=== PATIENT | male | born 1935 | race Caucasian/White ===

== ENCOUNTER 2020-01-16 08:16 | Inpatient (IN) | payer OTHER ==
--- NOTE | 2020-01-16 09:00 | RAD REPORT ---
EXAM DESCRIPTION: [place] Single View01/16/2020 8:51 am CLINICAL HISTORY: Shortness of breath COMPARISON: none FINDINGS: Small to moderate left and small right pleural effusions Mild bilateral pulmonary opacities The heart is mildly enlarged IMPRESSION: CHF
[2020-01-16 09:33] LABS: Absolute Lymphocytes (CBC) 0.8 K/uL (0.7-4.9); Basophils % 0.8 % (0-1.3); Lymphocytes % 13.7 % (15.3-44.8); MPV 8.5 fL (7.6-11.3); Protime INR 1.1; RBC Red Blood Cell Count 3.43 M/uL (4.33-5.43)
--- NOTE | 2020-01-16 09:36 | RAD REPORT ---
EXAM DESCRIPTION: USExtrem Venous W Compress Bil01/16/2020 9:28 am CLINICAL HISTORY: Bilateral leg swelling COMPARISON: none FINDINGS: The common femoral, superficial femoral, popliteal and posterior tibial veins bilaterally are compressible and demonstrate augmentation. Doppler demonstrates good flow. IMPRESSION: No evidence of deep venous thrombosis involving either lower extremity.
[2020-01-16 09:42] LABS: ALT/SGPT 14 U/L (12-78); AST/SGOT 12 U/L (15-37); Albumin 3.2 g/dL (3.4-5.0); Alkaline Phosphatase 95 U/L (45-117); BUN Blood Urea Nitrogen 29 mg/dL (7-18); Bicarbonate 25 mmol/L (21-32); Bilirubin Direct 0.3 mg/dL (0-0.2); Bilirubin Total 0.5 mg/dL (0.2-1.0); Glucose Level 124 mg/dL (74-106); Magnesium 1.9 mg/dL (1.8-2.4); NT PRO-BNP 9136 pg/mL (<450); Potassium 4.5 mmol/L (3.5-5.1); Protein, Total 7.7 g/dL (6.4-8.2); Sodium Level 138 mmol/L (136-145); Troponin (Emerg Dept Use Only) < 0.02 ng/mL (0.0-0.045)
--- NOTE | 2020-01-16 10:01 | EDPHYS ---
Physician Documentation [facility] Name: Trino Garsia Age: 84 yrs Sex: Male : 1935 Arrival Date: 01/16/2020 Time: 08:18 Bed 3 Private MD: ED Physician Luther Ruiz HPI: 01/15 09:01 This 84 yrs old Male presents to ER via EMS with complaints of Leg Swelling. jr8 09:01 Patient stated that he had sudden increase in lower extremity swelling. Has had open jr8 wounds to buttock and lower leg that were treated with Abx a couple of weeks ago. Now due to the swelling lower leg wound is getting red and worse again. Also complains of increase in shortness of breath . Severity of symptoms: At their worst the symptoms were moderate. The patient has not experienced similar symptoms in the past. The patient has not recently seen a physician. Historical: - Allergies: 08:27 Morphine; ss - PMHx: 08:27 Atrial Fib; CHF; ss - Social history:: Smoking status: Patient reports the use of cigarette tobacco products, cigars, "i sit on the balcony all day and smoke cigars", Patient uses. ROS: 09:01 Eyes: Negative for injury, pain, redness, and discharge, ENT: Negative for injury, jr8 pain, and discharge, Neck: Negative for injury, pain, and swelling, Abdomen/GI: Negative for abdominal pain, nausea, vomiting, diarrhea, and constipation, Back: Negative for injury and pain, MS/Extremity: Negative for injury and deformity, Neuro: Negative for headache, weakness, numbness, tingling, and seizure. 09:01 Cardiovascular: Positive for edema. 09:01 Respiratory: Positive for shortness of breath. 09:01 Skin: Positive for open wounds left leg and buttock . Exam: 09:01 Eyes: Pupils equal round and reactive to light, extra-ocular motions intact. Lids and jr8 lashes normal. Conjunctiva and sclera are non-icteric and not injected. Cornea within normal limits. Periorbital areas with no swelling, redness, or edema. ENT: Nares patent. No nasal discharge, no septal abnormalities noted. Tympanic membranes are normal and external auditory canals are clear. Oropharynx with no redness, swelling, or masses, exudates, or evidence of obstruction, uvula midline. Mucous membranes moist. 09:01 Respiratory: Lungs have equal breath sounds bilaterally, clear to auscultation and percussion. No rales, rhonchi or wheezes noted. No increased work of breathing, no retractions or nasal flaring. Abdomen/GI: Soft, non-tender, with normal bowel sounds. No distension or tympany. No guarding or rebound. No evidence of tenderness throughout. Back: No spinal tenderness. No costovertebral tenderness. Full range of motion. MS/ Extremity: Pulses equal, no cyanosis. Neurovascular intact. Full, normal range of motion. Neuro: Awake and alert, GCS 15, oriented to person, place, time, and situation. Cranial nerves II-XII grossly intact. Motor strength 5/5 in all extremities. Sensory grossly intact. Cerebellar exam normal. Normal gait. 09:01 Cardiovascular: Rate: normal, Rhythm: irregularly irregular, Pulses: Pulses are 2+ in right radial artery and left radial artery. Heart sounds: murmur, systolic, grade 3 over 6, heard in the aortic area, Edema: 4+ edema to level of left knee, left midcalf, left ankle, left foot, right knee, right midcalf, right ankle and right foot. 09:01 ECG was reviewed by the Attending Physician. 09:01 Skin: Patient has open wound with eschar noted to left anterior tibia region. Mild surrounding erythema noted. Vital Signs: 08:23 BP 188 / 81; Pulse 83; Resp 19; Temp 98.4(O); Pulse Ox 99% on R/A; Weight 157.85 kg tw2 (R); Height 6 ft. 3 in. (190.50 cm); Pain 0/10; 08:24 BP 188 / 87; Pulse 112; Resp 19; Pulse Ox 95% on R/A; Weight 127.01 kg; Height 6 ft. 3 ss in. (190.50 cm); Pain 0/10; 10:00 BP 186 / 86; Pulse 80; Resp 17; Pulse Ox 96% on R/A; hb 11:00 BP 194 / 91; Pulse 68; Resp 19; Pulse Ox 98% on R/A; hb 12:00 BP 170 / 81; Pulse 61; Resp 19; Pulse Ox 96% on R/A; tw2 12:56 BP 181 / 91; Pulse 65; Resp 18; Pulse Ox 98% on R/A; tw2 14:00 BP 199 / 77; Pulse 69; Resp 17; Pulse Ox 97% on R/A; tw2 15:01 BP 196 / 84; Pulse 84; Resp 17; Pulse Ox 98% on R/A; tw2 16:00 BP 199 / 85; Pulse 76; Resp 18; Pulse Ox 97% on R/A; tw2 16:52 BP 188 / 83; Pulse 66; Resp 17; Pulse Ox 95% on R/A; tw2 08:24 Body Mass Index 35.00 (127.01 kg, 190.50 cm) ss MDM: 08:27 Patient medically screened. jr8 09:57 Data reviewed: vital signs, nurses notes, lab test result(s), EKG, radiologic studies, jr8 plain films, ultrasound. Data interpreted: Pulse oximetry: on room air is 95 %. Interpretation: normal. Counseling: I had a detailed discussion with the patient and/or guardian regarding: the historical points, exam findings, and any diagnostic results supporting the discharge/admit diagnosis, lab results, radiology results, the need for further work-up and treatment in the hospital. Physician consultation: Prince Long SIMMS was called at 09:58, was contacted at 09:58, regarding admission, to the telemetry unit. consult, patient's condition. 01/15 08:26 Order name: Basic Metabolic Panel; Complete Time: 09:51 01/15 08:26 Order name: CBC with Diff; Complete Time: 09:35 01/15 08:26 Order name: LFT's; Complete Time: :51 01/15 08:26 Order name: Magnesium; Complete Time: 09:51 01/15 08:26 Order name: NT PRO-BNP; Complete Time: 09:51 01/15 08:26 Order name: PT-INR; Complete Time: 09:41 01/15 08:26 Order name: Troponin (emerg Dept Use Only); Complete Time: 09:51 01/15 08:26 Order name: XRAY Chest (1 view); Complete Time: 09:15 01/15 08:26 Order name: EKG; Complete Time: 08:28 01/15 08:27 Order name: US Extremity Venous W Compression Jak; Complete Time: 09:41 8 01/15 10:13 Order name: Urine Dipstick--Ancillary (enter results); Complete Time: 10:50 bd 01/15 08:26 Order name: Cardiac monitoring; Complete Time: 09:14 01/15 08:26 Order name: EKG - Nurse/Tech; Complete Time: 09:14 01/15 08:26 Order name: IV Saline Lock; Complete Time: 09:15 01/15 08:26 Order name: Labs collected and sent; Complete Time: 09:15 01/15 08:26 Order name: O2 Per Protocol; Complete Time: 09:15 01/15 08:26 Order name: O2 Sat Monitoring; Complete Time: 09:15 01/15 13:58 Order name: Diet 2 Gm Sodium; Complete Time: 13:59 mh5 01/15 16:33 Order name: Labs - recollect needed: please collect mag; Complete Time: 16:56 bd EC:01 Rate is 74 beats/min. Rhythm is irregularly irregular, A fib with Couplets. Left axis jr8 deviation noted. QRS interval is normal at 84 msec. QT interval is normal at 455 msec. Q waves are Present. T waves are Normal. No ST changes noted. Clinical impression: Atrial Fibrillation and No evidence of ischemia. Interpreted by me. Reviewed by me. Administered Medications: 09:56 Not Given (Duplicate Order): Lasix 80 mg IVP once tw2 10:11 Drug: Lasix 60 mg Route: IVP; Site: left antecubital; tw2 15:02 Follow up: Response: No adverse reaction tw2 Disposition: 01/16/20 10:00 Hospitalization ordered by Prince Long for Inpatient Admission. Preliminary diagnosis are Acute kidney failure, Acute combined systolic (congestive) and diastolic (congestive) heart failure, Anasarca, Open wound of lower leg. - Bed requested for Intensive Care Unit. - Status is Inpatient Admission. tw2 - Condition is Stable. - Problem is new. - Symptoms have improved. Addendum: 01/18/2020 18:20 Co-signature as Attending Physician, Luther su a2 Signatures: Dispatcher [employer] Nelia Turk Kimberly, RN RN Edyta Tan RN RN ss Richard Mclain PA PA jr8 Steph Pavon RN RN tw2 Luther Ruiz MD MD wy2 Corrections: (The following items were deleted from the chart) 01/15 11:51 11:36 EC Echo Doppler W/Color Flow+ECHO.RAD.BRZ ordered. EDTX EDMS 12:19 10:00 Hospitalization Ordered by Prince Long SIMMS for Inpatient Admission. Preliminary kl diagnosis is Acute kidney failure; Acute combined systolic (congestive) and diastolic (congestive) heart failure; Anasarca; Open wound of lower leg. Bed requested for Telemetry/MedSurg (observation). Status is Inpatient Admission. Condition is Stable. Problem is new. Symptoms have improved. 8 13:13 12:19 01/16/2020 10:00 Hospitalization Ordered by Prince Long SIMMS for Inpatient kl Admission. Preliminary diagnosis is Acute kidney failure; Acute combined systolic (congestive) and diastolic (congestive) heart failure; Anasarca; Open wound of lower leg. Bed requested for Telemetry/MedSurg (observation). Status is Inpatient Admission. Condition is Stable. Problem is new. Symptoms have improved. 13:15 13:13 01/16/2020 10:00 Hospitalization Ordered by Prince Long SIMMS for Inpatient jr8 Admission. Preliminary diagnosis is Acute kidney failure; Acute combined systolic (congestive) and diastolic (congestive) heart failure; Anasarca; Open wound of lower leg. Bed requested for Telemetry/MedSurg (observation). Status is Inpatient Admission. Condition is Stable. Problem is new. Symptoms have improved. 16:52 13:15 01/16/2020 10:00 Hospitalization Ordered by Prince Long SIMMS for Inpatient ss Admission. Preliminary diagnosis is Acute kidney failure; Acute combined systolic (congestive) and diastolic (congestive) heart failure; Anasarca; Open wound of lower leg. Bed requested for Intensive Care Unit. Status is Inpatient Admission. Condition is Stable. Problem is new. Symptoms have improved. 8 17:19 16:52 01/16/2020 10:00 Hospitalization Ordered by Prince Long SIMMS for Inpatient tw2 Admission. Preliminary diagnosis is Acute kidney failure; Acute combined systolic (congestive) and diastolic (congestive) heart failure; Anasarca; Open wound of lower leg. Bed requested for Intensive Care Unit. Status is Inpatient Admission. Condition is Stable. Problem is new. Symptoms have improved. ss
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
[2020-01-16] MEDS ORDERED: FUROSEMIDE 40 MG/4 ML VIAL ONE (10:06)
[2020-01-16] MEDS ORDERED: FUROSEMIDE 20 MG/ 2ML VIAL ONE (10:06)
[2020-01-16 10:39] LABS: Urine Blood 2+ (NEG); Urine Glucose NEGATIVE (NEG); Urine Protein 3+ (NEG); Urine pH 6.5 (5.0-7.0)
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
[2020-01-16] MEDS: HYDRALAZINE HCL 25 MG TABLET PO SCH ×2 (16:45→19:22)
[2020-01-16] MEDS ORDERED: FUROSEMIDE 40 MG/4 ML VIAL IV SCH (17:00)
[2020-01-16] MEDS ORDERED: NITROGLYCERIN/D5W 50 MG/250 ML BTL IV PRN (17:25)
[2020-01-16 17:46] VITALS: BMI 36.2
--- NOTE | 2020-01-16 20:14 | EKG ---
Test Date: 2020-01-16 Test Time: 08:38:16 Business Support Manager: GLORIA MEASUREMENT RESULTS: Intervals: Rate: 74 ME: QRSD: 84 QT: 410 QTc: 455 [place]: P: ME: QRS: -53 T: 99 INTERPRETIVE STATEMENTS: Atrial fibrillation with premature ventricular or aberrantly conducted complexes Left axis deviation Minimal voltage criteria for LVH, may be normal variant Inferior infarct, age undetermined Anteroseptal infarct, age undetermined Abnormal ECG No previous ECG available for comparison Electronically Signed On 01-16-20 20:13:13 CDT by Dmitry Recio
[2020-01-17 05:43] LABS: Albumin 2.6 g/dL (3.4-5.0); Bilirubin Total 0.5 mg/dL (0.2-1.0); Magnesium 1.8 mg/dL (1.8-2.4); Potassium 4.5 mmol/L (3.5-5.1); Protein, Total 6.7 g/dL (6.4-8.2)
[2020-01-17] MEDS: GABAPENTIN 100 MG CAP PO SCH ×3 (08:08→21:59)
[2020-01-17] MEDS: ASPIRIN 81 MG CHEWABLE TABLET PO SCH (08:08)
[2020-01-17] MEDS: HYDRALAZINE HCL 25 MG TABLET PO SCH ×3 (08:08→22:00)
[2020-01-17] MEDS: FUROSEMIDE 40 MG/4 ML VIAL IV SCH ×3 (08:08→16:09)
[2020-01-17] MEDS: PANTOPRAZOLE 40MG TABLET PO SCH (08:08)
[2020-01-17] MEDS: SUCRALFATE 1 GM TABLET PO SCH ×4 (08:08→21:59)
[2020-01-17] MEDS: MAGNESIUM OXIDE 400 MG TAB PO SCH ×3 (08:09→21:00)
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
[2020-01-17] MEDS ORDERED: HOME MED 1 EA UNK (Omeprazole [Omeprazole] 20 MG) PO SCH (09:00)
--- NOTE | 2020-01-17 10:53 | P.PN ---
Subjective Date of Service: 01/17/20 Chief Complaint: shortness of breath and lower extremity edema Subjective: Improving, Other (Patient reports symptomatic improvement of lower extremity edema and pressure ulcers on the buttocks. Hypertensive crisis has resolved. He will be downgraded to general floor while on telemetry.) Physical Examination - Vital Signs Temperature: 98.3 F Blood Pressure: 167/70 Pulse: 78 Respirations: 13 Pulse Ox (%): 98 - Physical Exam General: Alert, In no apparent distress, Cooperative HEENT: Atraumatic, Normocephalic, EOMI Neck: Supple Respiratory: Normal air movement Cardiovascular: Regular rate/rhythm, Normal S1 S2, Irregular heart rate/rhythm Gastrointestinal: Normal bowel sounds, Soft and benign, Non-distended Musculoskeletal: No clubbing, No contractures, No warmth, Swelling, Erythema, Tenderness Integumentary: Skin breakdown, Pressure ulcer Neurological: Normal speech, Sensation intact, Normal affect Assessment & Plan - Problems (Diagnosis) (1) Hypertensive emergency Current Visit: Yes Status: Acute (2) Acute decompensated heart failure Current Visit: Yes Status: Acute (3) SHANE (acute kidney injury) Current Visit: Yes Status: Acute (4) Stage II pressure ulcer of buttock Current Visit: Yes Status: Acute (5) Left leg cellulitis Current Visit: Yes Status: Acute (6) Atrial fibrillation Current Visit: Yes Status: Acute (7) Hypertension Current Visit: Yes Status: Acute Physician Review Additional Text: Assessment Patient is a 84 year old male wtih morbid obesity, HTN, atrial fibri llation who presented to the ER with worsening bilateral lower extremity edema and wounds and mild shortness of breath. He was foudn to have hypertensive emergency with SBP > 195 mmHg. He required ICU placement for nitroglycerin infusion and lasix injections Hypertensive emergency Decompensated CHF Atrial fibrillation SHANE Leg wounds/cellulitis Stage III pressure ulcer in the buttocks PLAN Downgrade to floor while on telemetry Continue diuresis, monitor I/O daily Continue Hydralazine, add nitrates Follow up 2-D ECHO Coreg for atrial fibrillation Will discuss systemic anticoagulation for CVA prevention Follow up nephrology recommendations for SHANE. Continue wound care for as per Wound nurse instructions Case discussed during MDR for home health with wound care
[2020-01-17] MEDS: ISOSORBIDE DINIT 20 MG TAB PO SCH ×3 (11:38→21:58)
[2020-01-17] MEDS: carvediloL 12.5 MG TAB PO SCH ×2 (11:38→18:10)
[2020-01-17] MEDS: MEDIHONEY 44 ML TOPICAL TUBE TOP SCH (11:38)
--- NOTE | 2020-01-17 14:11 | ECHO ---
HEIGHT: 6 ft 3 in WEIGHT: 289 lb 12.8 oz DATE OF STUDY: 01/17/[address]: Prince Alfonso Alves MD 2-DIMENSIONAL: YES M.MODE: YES DOPPLER: YES COLOR FLOW: YES TDS: NO PORTABLE: NO DEFINITY: NO BUBBLE STUDY: NO DIAGNOSIS: CONGESTIVE HEART FAILURE CARDIAC HISTORY: CATHERIZATION: YES SURGERY: NO PROSTHETIC VALVE: NO PACEMAKER: NO MEASUREMENTS (cm) DIASTOLIC (NORMALS) SYSTOLIC (NORMALS) IVSd 1.3 (0.6-1.2) LA Diam 4.1 (1.9-4.0) LVEF 44% LVIDd 5.6 (3.5-5.7) LVIDs 4.4 (2.0-3.5) %FS 22% LVPWd 1.2 (0.6-1.2) Ao Diam 3.2 (2.0-3.7) 2 DIMENSIONAL ASSESSMENT: RIGHT ATRIUM: NORMAL LEFT ATRIUM: DILATED RIGHT VENTRICLE: NORMAL LEFT VENTRICLE: NORMAL SIZE TRICUSPID VALVE: NORMAL MITRAL VALVE: MITRAL ANNULAR CALCIFICATION PULMONIC VALVE: NORMAL AORTIC VALVE: STENOTIC PERICARDIAL EFFUSION: NONE AORTIC ROOT: NORMAL LEFT VENTRICULAR WALL MOTION: MILD GLOBAL HYPOKINESIS. DOPPLER/COLOR FLOW: MILD AORTIC STENOSIS - 1.7 CENTIMETER SQUARED. MILD TRICUSPID REGURGITATION - NORMAL RIGHT VENTRICULAR SYSTOLIC PRESSURE. COMMENTS: MILD AORTIC STENOSIS 1.7 CENTIMETERS SQUARED. MILD GLOBAL HYPOKINESIS - EJECTION FRACTION 44%. MITRAL ANNULAR CALCIFICATION. MILD TRICUSPID REGURGITATION - NORMAL RIGHT VENTRICULAR SYSTOLIC PRESSURE. TECHNOLOGIST: JENNIFER HONEYCUTT
[2020-01-17] MEDS ORDERED: EPOETIN ALFA-EPBX 10,000 UNIT/ML VIAL SQ ONE (16:00)
[2020-01-17] MEDS ORDERED: METOLAZONE 5 MG TABLET PO SCH (16:00)
[2020-01-17] MEDS: TAMSULOSIN 0.4 MG SR CAP PO SCH (22:00)
[2020-01-17] MEDS: DOCUSATE NA/SENNA CONC 1 TAB PO SCH (22:00)
[2020-01-17] MEDS: JUVEN PACKET PO SCH (22:01)
[2020-01-17] MEDS: ENSURE HIGH PROTEIN 237 ML CAN PO SCH (22:01)
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
[2020-01-18 06:30] LABS: Potassium 4.1 mmol/L (3.5-5.1)
[2020-01-18] MEDS: carvediloL 12.5 MG TAB PO SCH ×2 (06:41→17:04)
--- NOTE | 2020-01-18 07:40 | RAD REPORT ---
EXAM DESCRIPTION: US - Renal Ultrasound-Complete - 01/17/2020 9:48 pm CLINICAL HISTORY: SHANE COMPARISON: No comparisons FINDINGS: The right kidney measures 11.8 x 5.6 x 6.2 cm. The left kidney measures 12.9 x 5.5 x 5.0 cm. Renal cortical thickness and echogenicity are normal. No hydronephrosis or suspicious renal mass. Doppler evaluation was technically difficult. There appears to be a diminished perfusion to both kidn eys. The accuracy of diminished perfusion assessment is question. If warranted, dedicated renal Doppl er assessment could be performed with the patient could undergo no CTA or MRA of the renal vasculatur e. No bladder wall thickening or mass. No intraluminal stone or mass. IMPRESSION: No hydronephrosis or suspicious renal mass. Limited Doppler assessment suggest diminished perfusion a each kidneys. If clinically warranted, this could be further assessed as detailed above.
--- NOTE | 2020-01-18 07:41 | RAD REPORT ---
EXAM DESCRIPTION: US - Urinary Bladder - 01/17/2020 9:48 pm FINDINGS: Dedicated bladder sonography was performed. Urinary bladder volume is low somewhat limiting assessment. No bladder wall thickening or mass identi fied. No stone or other intraluminal mass identifiable.
[2020-01-18] MEDS: MAGNESIUM OXIDE 400 MG TAB PO SCH ×3 (09:00→21:15)
[2020-01-18] MEDS: HYDRALAZINE HCL 25 MG TABLET PO SCH ×4 (09:00→21:14)
[2020-01-18] MEDS: GABAPENTIN 100 MG CAP PO SCH ×3 (09:10→21:14)
[2020-01-18] MEDS: PANTOPRAZOLE 40MG TABLET PO SCH (09:10)
[2020-01-18] MEDS: ISOSORBIDE DINIT 20 MG TAB PO SCH ×3 (09:10→21:14)
[2020-01-18] MEDS: ASPIRIN 81 MG CHEWABLE TABLET PO SCH (09:10)
[2020-01-18] MEDS: VITAMIN D 5,000 UNIT CAP PO SCH (09:10)
[2020-01-18] MEDS: SUCRALFATE 1 GM TABLET PO SCH ×4 (09:11→21:14)
[2020-01-18] MEDS: FUROSEMIDE 40 MG/4 ML VIAL IV SCH ×2 (09:11→16:51)
[2020-01-18] MEDS: JUVEN PACKET PO SCH ×2 (09:12→21:15)
[2020-01-18] MEDS: ENSURE HIGH PROTEIN 237 ML CAN PO SCH ×2 (09:14→21:15)
--- NOTE | 2020-01-18 11:15 | P.PN ---
Subjective Date of Service: 01/18/20 Chief Complaint: shortness of breath and lower extremity edema Subjective: No new changes (Patient is reporting dyspnea with minimal exertion such as getting out of toilet. However, he is overall doing better. I spent 10 minutes discussing plan of care. I stressed on the importance of dietary compliance including daily total water intake and salt, medication compliance. I also discussed the importance of systemic anticoagulation for CVA prevention. He was initially adverse to the idea because of the amount of monitoring required while on warfarin. I discussed alternative with him. He is agreeable as long as there is reversal agent.) Physical Examination - Vital Signs Temperature: 97.7 F Blood Pressure: 136/63 Pulse: 58 Respirations: 19 Pulse Ox (%): 94 - Physical Exam General: Cooperative, Moderate distress HEENT: Atraumatic, Normocephalic, EOMI Respiratory: Diminished, Crackles/rales Cardiovascular: Normal S1 S2, Irregular heart rate/rhythm Gastrointestinal: Normal bowel sounds, Soft and benign, Non-distended Musculoskeletal: Swelling, Erythema, Tenderness Integumentary: Pressure ulcer, Other (stage III pressure ulcer in the buttocks) Neurological: Normal speech, Sensation intact, Normal affect Assessment & Plan - Problems (Diagnosis) (1) Hypertensive emergency Current Visit: Yes Status: Acute (2) Acute decompensated heart failure Current Visit: Yes Status: Acute (3) SHANE (acute kidney injury) Current Visit: Yes Status: Acute (4) Stage II pressure ulcer of buttock Current Visit: Yes Status: Acute (5) Left leg cellulitis Current Visit: Yes Status: Acute (6) Atrial fibrillation Current Visit: Yes Status: Acute (7) Hypertension Current Visit: Yes Status: Acute Physician Review Additional Text: Assessment Patient is a 84 year old male with morbid obesity, HTN, atrial fibrillation who presented to the ER with worsening bilateral lower extremity edema and wounds and mild shortness of breath. He was found to have hypertensive emergency with SBP > 195 mmHg, acute on chronic systolic HF and SHANE. He required ICU placement for nitroglycerin infusion and lasix injections. 2-D Echo shows EF of 40-44%. He is still requiring diuresis. His renal function is slowly to recover. He had a negative renal and bladder ultrasound. Nephrology is on board. Hypertensive emergency Decompensated CHF Atrial fibrillation SHANE Leg wounds/cellulitis Stage III pressure ulcer in the buttocks PLAN Continue telemetry Continue diuresis, monitor I/O daily. Received 1 dose of metolazone yesterday Patient educated on fluid restriction, 1.5 L per day AND salt restriction Continue Hydralazine and nitrates Coreg for atrial fibrillation Continue wound care for as per Wound nurse instructions Case discussed during MDR for home health with wound care. I will put order for cardiac rehab.
[2020-01-18] MEDS: DABIGATRAN 150 MG CAP PO SCH ×2 (13:27→21:14)
[2020-01-18] MEDS: MEDIHONEY 44 ML TOPICAL TUBE TOP SCH (14:14)
[2020-01-18] MEDS: TAMSULOSIN 0.4 MG SR CAP PO SCH (21:14)
[2020-01-18] MEDS: DOCUSATE NA/SENNA CONC 1 TAB PO SCH (21:14)
--- NOTE | 2020-01-18 21:51 | P.PN ---
Date of Service: 01/18/20 Vital Signs Temp Pulse Resp BP Pulse Ox 98.1 F 53 18 172/65 H 97 01/18/20 20:00 01/18/20 20:00 01/18/20 20:00 01/18/20 20:00 01/18/20 20:00 Medications Aspirin (Aspirin Chewable) 81 mg PO DAILY [facility] Stop: 02/16/20 09:01 Last Admin: 01/18/20 09:10 Dose: 81 mg Documented by: Carvedilol (Coreg) 12.5 mg PO BID 6AM 6PM [facility] Stop: 02/16/20 10:57 Last Admin: 01/18/20 17:04 Dose: 12.5 mg Documented by: Cholecalciferol (Vitamin D 5,000 Iu Cap) 5,000 unit PO DAILY [facility] Stop: 02/17/20 09:01 Last Admin: 01/18/20 09:10 Dose: 5,000 unit Documented by: Dabigatran (Pradaxa) 150 mg PO BID [facility] Stop: 02/17/20 14:01 Last Admin: 01/18/20 21:14 Dose: 150 mg Documented by: Emollient Gel ([facility] Woundcare Gel) 1 appl TOP DAILY [facility] Stop: 02/16/20 09:01 Last Admin: 01/18/20 14:14 Dose: 1 appl Documented by: Furosemide (Lasix) 40 mg IV BIDL [facility] Stop: 02/16/20 07:37 Last Admin: 01/18/20 16:51 Dose: 40 mg Documented by: Gabapentin (Neurontin) 100 mg PO TID [facility] Stop: 02/16/20 09:01 Last Admin: 01/18/20 21:14 Dose: 100 mg Documented by: Hydralazine HCl (Apresoline) 50 mg PO TID [facility] Stop: 02/17/20 08:01 Last Admin: 01/18/20 21:14 Dose: 50 mg Documented by: Nitroglycerin/Dextrose (Ntg 0.2 Mg/Ml In D5w 250 Ml) 50 mg in 250 mls @ 0 mls/hr IV PRN PRN; Protocol PRN Reason: Hemodynamic Parameters Stop: 02/15/20 17:26 Last Admin: 01/16/20 17:53 Dose: 250 mls Documented by: Isosorbide Dinitrate (Isordil) 20 mg PO TID [facility] Stop: 02/16/20 10:55 Last Admin: 01/18/20 21:14 Dose: 20 mg Documented by: L-Arginine/L-Glutamine/HMB (Edilson) 1 pkt PO BID [facility] Stop: 02/16/20 21:01 Last Admin: 01/18/20 21:15 Dose: 1 pkt Documented by: Magnesium Oxide (Mag 0x Tab) 400 mg PO TID [facility] Stop: 02/16/20 09:01 Last Admin: 01/18/20 21:15 Dose: 400 mg Documented by: Nutritional Formula (Ensure High Protein) 237 ml PO BID [facility] Stop: 02/16/20 21:01 Last Admin: 01/18/20 21:15 Dose: 237 ml Documented by: Pantoprazole Sodium (Protonix Tab) 40 mg PO DAILY [facility] Stop: 02/16/20 09:01 Last Admin: 01/18/20 09:10 Dose: 40 mg Documented by: Senna/Docusate Sodium (Senokot-S) 1 tab PO BEDTIME [facility] Stop: 02/16/20 21:01 Last Admin: 01/18/20 21:14 Dose: 1 tab Documented by: Sucralfate (Carafate -Tab) 1 gm PO QID [facility] Stop: 02/16/20 09:01 Last Admin: 01/18/20 21:14 Dose: 1 gm Documented by: Tamsulosin HCl (Flomax) 0.8 mg PO BEDTIME [facility] Stop: 02/16/20 21:01 Last Admin: 01/18/20 21:14 Dose: 0.8 mg Documented by: Assessment/ Plan: Nephrology Feeling better today. CPS stable without CP or SOB. +MIX No acute events overnight. Vitals, medications, blood work and imaging reviewed in the chart. General: In no apparent distress, Oriented x3, Cooperative HEENT: Normocephalic, Mucous membr. moist/pink Neck: Supple Respiratory: Clear to auscultation bilaterally Cardiovascular: Regular rate/rhythm, No rubs, Edema Gastrointestinal: Soft and benign, Non-distended, No guarding Musculoskeletal: No clubbing, No contractures Integumentary: No cyanosis, Skin breakdown Neurological: Normal speech Laboratory Data (last 24 hrs) 01/16/20 09:10: PT 13.0 H, INR 1.10 01/16/20 09:10: WBC 5.5, Hgb 9.5 L, Hct 30.0 L, Plt Count 243 01/16/20 09:10: Sodium 138, Potassium 4.5, BUN 29 H, Creatinine 2.39 H, Glucose 124 H, Magnesium 1.9, Total Bilirubin 0.5, AST 12 L, ALT 14, Alkaline Phosphata se 95 Imagings Data: EXAM DESCRIPTION: [place] Single View01/16/2020 8:51 am CLINICAL HISTORY: Shortness of breath COMPARISON: none FINDINGS: Small to moderate left and small right pleural effusion Mild bilateral pulmonary opacities The heart is mildly enlarged IMPRESSION: CHF COMMENTS: MILD AORTIC STENOSIS 1.7 CENTIMETERS SQUARED. MILD GLOBAL HYPOKINESIS EJECTION FRACTION 44%. MITRAL ANNULAR CALCIFICATION. MILD TRICUSPID REGURGITATION NORMAL RIGHT VENTRICULAR SYSTOLIC PRESSURE. Conclusions/Impression: A/ SHANE in the setting of CHF. Hypocalcemia. CKD with proteinuria. Baseline unknown. HTN with CKD/ CHF. Systolic CHF, A/C. DM II with CKD. Anemia in chronic illness. P/ Continue current POC and Medications. Continue Lasix. Reduce Coreg due to bradycardia. Restart Losartan 25mg BID and titrate as needed. No NSAIDs. AM labs. Daily weight. PCP records pending.
[2020-01-18] MEDS: LOSARTAN POTASSIUM 50 MG TABLET PO SCH (22:00)
[2020-01-19] MEDS: carvediloL 12.5 MG TAB PO SCH ×2 (05:42→12:32)
[2020-01-19] MEDS: ASPIRIN 81 MG CHEWABLE TABLET PO SCH (09:00)
[2020-01-19] MEDS: SUCRALFATE 1 GM TABLET PO SCH ×4 (09:01→20:58)
[2020-01-19] MEDS: LOSARTAN POTASSIUM 50 MG TABLET PO SCH (09:01)
[2020-01-19] MEDS: VITAMIN D 5,000 UNIT CAP PO SCH (09:01)
[2020-01-19] MEDS: HYDRALAZINE HCL 25 MG TABLET PO SCH ×3 (09:01→20:58)
[2020-01-19] MEDS: ISOSORBIDE DINIT 20 MG TAB PO SCH ×3 (09:02→20:58)
[2020-01-19] MEDS: GABAPENTIN 100 MG CAP PO SCH ×3 (09:02→20:58)
[2020-01-19] MEDS: PANTOPRAZOLE 40MG TABLET PO SCH (09:02)
[2020-01-19] MEDS: MAGNESIUM OXIDE 400 MG TAB PO SCH ×3 (09:02→20:58)
[2020-01-19] MEDS: FUROSEMIDE 40 MG/4 ML VIAL IV SCH ×2 (09:02→17:00)
[2020-01-19] MEDS: JUVEN PACKET PO SCH ×2 (09:06→20:58)
[2020-01-19] MEDS: ENSURE HIGH PROTEIN 237 ML CAN PO SCH ×2 (09:06→20:58)
[2020-01-19] MEDS: DABIGATRAN 75 MG CAP PO SCH ×2 (09:06→20:59)
[2020-01-19] MEDS: MEDIHONEY 44 ML TOPICAL TUBE TOP SCH (09:06)
[2020-01-19 09:24] LABS: Absolute Lymphocytes (CBC) 0.8 K/uL (0.7-4.9); Basophils % 0.6 % (0-1.3); Lymphocytes % 15.4 % (15.3-44.8); MPV 8.9 fL (7.6-11.3); RBC Red Blood Cell Count 2.97 M/uL (4.33-5.43)
[2020-01-19] MEDS ORDERED: NA CHLORIDE 5% Opth Soln 150 DROPS/15 ML BTL EACH EYE PRN (09:36)
[2020-01-19 09:39] LABS: Potassium 4.1 mmol/L (3.5-5.1)
--- NOTE | 2020-01-19 12:40 | P.PN ---
Subjective Date of Service: 01/19/20 Chief Complaint: shortness of breath and lower extremity edema Subjective: New changes (Patient bradycardic this morning. Coreg held. Otherwise, he is comfortable w/o supplemental O2 while at rest. Still reporting MIX.) Physical Examination - Vital Signs Temperature: 97.3 F Blood Pressure: 133/65 Pulse: 54 Respirations: 20 Pulse Ox (%): 91 - Physical Exam General: Alert, In no apparent distress, Cooperative, Obese, Other (LETHARGIC) HEENT: Atraumatic, Normocephalic, EOMI Respiratory: Diminished (No wheezing or crackles appreciated) Cardiovascular: Normal S1 S2, Edema, Irregular heart rate/rhythm Musculoskeletal: Swelling, Erythema, Tenderness, Other (bilateral lower extremity edema. LLE wrapped. ) Neurological: Normal speech, Sensation intact, Normal affect Assessment & Plan - Problems (Diagnosis) (1) Hypertensive emergency Current Visit: Yes Status: Acute (2) Acute decompensated heart failure Current Visit: Yes Status: Acute (3) SHANE (acute kidney injury) Current Visit: Yes Status: Acute (4) Stage II pressure ulcer of buttock Current Visit: Yes Status: Acute (5) Left leg cellulitis Current Visit: Yes Status: Acute (6) Atrial fibrillation Current Visit: Yes Status: Acute (7) Hypertension Current Visit: Yes Status: Acute Physician Review Additional Text: Assessment Patient is a 84 year old male with morbid obesity, HTN, atrial fibrillation who presented to the ER with worsening bilateral lower extremity edema and wounds and mild shortness of breath. He was found to have hypertensive emergency with SBP > 195 mmHg, acute on chronic systolic HF and SHANE. He required ICU placement for nitroglycerin infusion and lasix injections. 2-D Echo shows EF of 40-44%. He is still requiring diuresis. His renal function is slowly to recover. He had a negative renal and bladder ultrasound. Nephrology is on board. Hypertensive emergency Decompensated CHF Atrial fibrillation SHANE Leg wounds/cellulitis Stage III pressure ulcer in the buttocks PLAN HOLD coreg due to bradycardia Continue telemetry Continue diuresis, monitor I/O daily, fluid restriction ( 1.5 L per day) AND salt restriction Continue Hydralazine and nitrates Pradaxa for CVA prevention Will defer management of SHANE to Nephrology Continue wound care for as per Wound nurse instructions Patient will need to go to rehab.
--- NOTE | 2020-01-19 15:17 | P.PN ---
Date of Service: 01/19/20 patient seen/examined. labs/meds reviewed. patient still weak and bp on lower side at times. creatinine slightly higher and now in 3 range. calcium is lower. on multiple bp meds. vs stable. low bp at times. lungs decreased bs b/l cvs irregular abd soft/nt/nd/bs+ ext: impressive 2-3 + edema b/l a/p: zachariah?/CKD? stage 3/? cardiorenal/? 2nd to hx of htn/on multiple meds with bp lower at times/had been on betablocker and hydralazine in past but betablocker was d/amparo while hydralazine continued. on higher dose of flomax. feels light headed and dizzy easily. decrease losartan to 25mg daily decrease gabapentin to 100mg qhs decrease hydralazine to 25mg tid and hold for sbp <120 decrease flomax to 0.4 mg and hold for sbp <120 if bp improves, may consider increasing lasix in future and/or increasing losartan. if stabilizes on diuretics and mckinley/arb, may be able to cut back on hydralazine further and consider stopping. my stop gabapentin in future if able to tolerate stopping it. likely contribution to swelling from gabapentin and hydralazine. agree with betablocker. would avoid using hydralazine if betablocker is discontinued for any reason. d/w hospitalist.
[2020-01-19] MEDS: ACETAMINOPHEN 500 MG TAB PO PRN (17:01)
[2020-01-19] MEDS: DOCUSATE NA/SENNA CONC 1 TAB PO SCH (20:58)
[2020-01-19] MEDS: TAMSULOSIN 0.4 MG SR CAP PO SCH (20:59)
--- NOTE | 2020-01-19 21:03 | PN ---
Date of Progress Note: 01/19/2020 Mr. Garsia is there with acute on chronic systolic congestive heart failure, acute kidney injury. E jection fraction was 44% by echocardiogram. Mr. Garsia has paroxysmal atrial fibrillation. He has had that in the past and has refused Coumadin therapy, but yesterday, he was convinced to take Pradax a for his atrial fibrillation. His atrial fibrillation is well controlled. His heart rate is only 5 9. His last blood pressure was 137/48. He is saturating 100% on room air. His last creatinine of 2 .46. He has been seen by Nephrology. Renal ultrasound suggested diminished perfusion of each kidney , but no hydronephrosis or renal masses. His latest recommendation from Nephrology was to continue h is Lasix, Coreg was reduced secondary to bradycardia, losartan was restarted, a.m. labs were ordered. I agree with his present assessment and plan and treatment. I will continue to follow him. MINDY/NATE Voice ID: [id number] Report ID: [id number]
[2020-01-20 06:13] LABS: Absolute Lymphocytes (CBC) 0.8 K/uL (0.7-4.9); Basophils % 0.6 % (0-1.3); Lymphocytes % 15.2 % (15.3-44.8); MPV 8.9 fL (7.6-11.3); RBC Red Blood Cell Count 2.88 M/uL (4.33-5.43)
[2020-01-20 06:18] LABS: Magnesium 2.2 mg/dL (1.8-2.4); Potassium 4.2 mmol/L (3.5-5.1)
--- NOTE | 2020-01-20 09:43 | PN ---
Date of Progress Note: 01/19/2020 Subjective: Mr. Garsia has been followed for acute on chronic congestive heart failure that is syst olic. He has paroxysmal atrial fibrillation, hypertension, diabetes, anemia and acute kidney injury. He is also bradycardic and slightly hypotensive. Today, he was seen by Nephrology. His losartan w as decreased. His Coreg was decreased. His Neurontin was decreased. His hydralazine was decreased as well as his Flomax. He is feeling better and improving and we will see what his blood pressure an d heart rate does on the new medical changes that were done by Nephrology. We will continue to follo w him. He is in sinus rhythm now. He is also on Pradaxa. NB/MODL Voice ID: [id number] Report ID: [id number]
[2020-01-20] MEDS: FUROSEMIDE 40 MG/4 ML VIAL IV SCH ×2 (09:45→16:30)
[2020-01-20] MEDS: SUCRALFATE 1 GM TABLET PO SCH ×4 (09:48→20:59)
[2020-01-20] MEDS: LOSARTAN POTASSIUM 50 MG TABLET PO SCH (09:48)
[2020-01-20] MEDS: MAGNESIUM OXIDE 400 MG TAB PO SCH ×3 (09:48→21:00)
[2020-01-20] MEDS: VITAMIN D 5,000 UNIT CAP PO SCH (09:48)
[2020-01-20] MEDS: ISOSORBIDE DINIT 20 MG TAB PO SCH ×3 (09:49→21:00)
[2020-01-20] MEDS: HYDRALAZINE HCL 25 MG TABLET PO SCH ×3 (09:49→21:00)
[2020-01-20] MEDS: DABIGATRAN 75 MG CAP PO SCH ×2 (09:49→20:58)
[2020-01-20] MEDS: PANTOPRAZOLE 40MG TABLET PO SCH (09:49)
[2020-01-20] MEDS: JUVEN PACKET PO SCH ×2 (09:51→21:00)
[2020-01-20] MEDS: ENSURE HIGH PROTEIN 237 ML CAN PO SCH ×2 (09:51→21:00)
[2020-01-20] MEDS: MEDIHONEY 44 ML TOPICAL TUBE TOP SCH (09:51)
--- NOTE | 2020-01-20 11:32 | P.PN ---
Date of Service: 01/20/20 patient seen/examined. labs/meds reviewed. creatinine slightly higher but not a significant jump and patient is feeling well clinically. calcium is lower. bp better. multiple bp meds, gabapentin and flomax were adjusted yesterday. vs stable. low bp at times. lungs decreased bs b/l [facility] regular abd soft/nt/nd/bs+ ext: impressive 2 + edema b/l (seems to be slightly better) a/p: zachariah?/CKD? stage 3/? cardiorenal/? 2nd to hx of htn/on multiple meds with bp improved at this time/continue current meds with bp monitoring. getting wound care and awaiting evaluation with social and political studies professor to coduct care planning. may be several days before baseline renal function becomes clear as we correct his volume statu, his wound heals and bp is stable. discussed plan with hospitalist and DR. Recio (museum informatics specialist) MED CHANGES FROM YESTERDAY: decrease losartan to 25mg daily decrease gabapentin to 100mg qhs decrease hydralazine to 25mg tid and hold for sbp <120 decrease flomax to 0.4 mg and hold for sbp <120 if bp improves, may consider increasing lasix in future and/or increasing losartan. if stabilizes on diuretics and mckinley/arb, may be able to cut back on hydralazine further and consider stopping. my stop gabapentin in future if able to tolerate stopping it. likely contribution to swelling from gabapentin and hydralazine. agree with betablocker. would avoid using hydralazine if betablocker is discontinued for any reason.
--- NOTE | 2020-01-20 12:15 | P.PN ---
Subjective Date of Service: 01/20/20 Chief Complaint: shortness of breath and lower extremity edema Subjective: Improving (Patient continues to improve. OFF supplemental O2.) Physical Examination - Vital Signs Temperature: 97.6 F Blood Pressure: 128/60 Pulse: 62 Respirations: 20 Pulse Ox (%): 95 - Physical Exam General: Alert, Cooperative, Other (slightly lethargic) HEENT: Atraumatic, Normocephalic Neck: Supple Respiratory: Clear to auscultation bilaterally, Normal air movement Cardiovascular: Normal pulses, Edema, Irregular heart rate/rhythm, Systolic murmur Gastrointestinal: Normal bowel sounds, Soft and benign, Non-distended Musculoskeletal: No clubbing, No contractures, No warmth, Swelling, Erythema, Tenderness Neurological: Normal speech, Sensation intact, Normal affect Assessment & Plan - Problems (Diagnosis) (1) Hypertensive emergency Current Visit: Yes Status: Acute (2) Acute decompensated heart failure Current Visit: Yes Status: Acute (3) SHANE (acute kidney injury) Current Visit: Yes Status: Acute (4) Stage II pressure ulcer of buttock Current Visit: Yes Status: Acute (5) Left leg cellulitis Current Visit: Yes Status: Acute (6) Atrial fibrillation Current Visit: Yes Status: Acute (7) Hypertension Current Visit: Yes Status: Acute Physician Review Additional Text: Assessment Patient is a 84 year old male with morbid obesity, HTN, atrial fibrillation who presented to the ER with worsening bilateral lower extremity edema and wounds and mild shortness of breath. He was found to have hypertensive emergency with SBP > 195 mmHg, acute on chronic systolic HF and SHANE. He required ICU placement for nitroglycerin infusion and lasix injections. 2-D Echo shows LVEF of 40-44%. He is still on diuresis. His renal function slow to recover. Nephrology concerned about possible baseline CKD with superimposed ATN caused by recent BP issues, bradycardia and intravascular volume depletion. He had a negative renal and bladder ultrasound. Nephrology has reached out to [facility] to retrieve patient's renal records. Hypertensive emergency Decompensated CHF Atrial fibrillation SHANE Leg wounds/cellulitis Stage III pressure ulcer in the buttocks PLAN Continue holding coreg due to bradycardia Continue telemetry Continue diuresis, monitor I/O daily, fluid restriction ( 1.5 L per day) AND salt restriction Nephrology attributes his swelling to gabapentin and hydralazine, which are now titrated down. Check ESR, CRP Continue Pradaxa for CVA prevention Continue wound care for as per Wound nurse instructions Patient will need to go to rehab.
--- NOTE | 2020-01-20 12:57 | PN ---
Date of Progress Note: 01/20/2020 Mr. Garsia has been followed for acute on chronic congestive heart failure that is systolic, ejectio n fraction 44%. Has elevated creatinine; paroxysmal atrial fibrillation, on Pradaxa. Has hypertensi on, diabetes, and anemia. Continues to be a borderline hypotensive. He is definitely bradycardic st ill. Dr. Field yesterday decrease his Coreg, losartan, Neurontin, hydralazine, and Flomax. I will di scuss the case further with Nephrology today, but I think we can definitely get off the Coreg as his bradycardia definitely is significant and remains an issue. He remains short of breath and fatigued. I would probably continue the losartan and continue the Lasix. NB/MODL Voice ID: [id number] Report ID: [id number]
[2020-01-20] MEDS: GABAPENTIN 100 MG CAP PO SCH (20:59)
[2020-01-20] MEDS: TAMSULOSIN 0.4 MG SR CAP PO SCH (20:59)
[2020-01-20] MEDS: DOCUSATE NA/SENNA CONC 1 TAB PO SCH (21:00)
[2020-01-20] MEDS ORDERED: NA CHLORIDE 5% Opth Soln 150 DROPS/15 ML BTL OPTH PRN (21:03)
[2020-01-20] MEDS ORDERED: TETRAHYDROZOLINE HCL 150 DROPS/15 ML BTL OPTH PRN (21:48)
[2020-01-21 04:49] LABS: Basophils % 0.4 % (0-1.3); Hematocrit 26.7 % (39.6-49.0); Lymphocytes % 13.4 % (15.3-44.8); MPV 8.8 fL (7.6-11.3); RBC Red Blood Cell Count 3.05 M/uL (4.33-5.43)
[2020-01-21 05:02] LABS: Magnesium 2.3 mg/dL (1.8-2.4); Potassium 4.1 mmol/L (3.5-5.1)
[2020-01-21] MEDS: LOSARTAN POTASSIUM 50 MG TABLET PO SCH (08:50)
[2020-01-21] MEDS: PANTOPRAZOLE 40MG TABLET PO SCH (08:51)
[2020-01-21] MEDS: VITAMIN D 5,000 UNIT CAP PO SCH (08:51)
[2020-01-21] MEDS: MAGNESIUM OXIDE 400 MG TAB PO SCH ×3 (08:51→21:00)
[2020-01-21] MEDS: SUCRALFATE 1 GM TABLET PO SCH ×4 (08:52→21:26)
[2020-01-21] MEDS: DABIGATRAN 75 MG CAP PO SCH ×2 (08:52→21:27)
[2020-01-21] MEDS: HYDRALAZINE HCL 25 MG TABLET PO SCH ×3 (08:52→21:26)
[2020-01-21] MEDS: ENSURE HIGH PROTEIN 237 ML CAN PO SCH ×2 (08:54→21:27)
[2020-01-21] MEDS: FUROSEMIDE 40 MG/4 ML VIAL IV SCH ×2 (08:54→16:15)
[2020-01-21] MEDS: JUVEN PACKET PO SCH ×2 (08:55→21:27)
[2020-01-21] MEDS: ISOSORBIDE DINIT 20 MG TAB PO SCH ×3 (08:55→21:27)
[2020-01-21] MEDS: MEDIHONEY 44 ML TOPICAL TUBE TOP SCH (08:56)
--- NOTE | 2020-01-21 10:49 | PN ---
Date of Progress Note: 01/21/2020 Mr. Garsia has been followed for acute on chronic systolic congestive heart failure, ejection fracti on of 44%. He has renal insufficiency as well. He has chronic lymphedema, which is stable. From a CHF standpoint, he is breathing better, his O2 saturations are adequate. His chest is clear. His vital signs are stable. He is in sinus bradycardia with PVC. His blood pressure is better after multiple medication changes by Nephrology. I agree with his present regimen. Continue present ther apy. He will need close followup after he gets discharged. I will be happy to see him in the office in the next 2 to 3 weeks. MINDY/NATE Voice ID: [id number] Report ID: [id number]
--- NOTE | 2020-01-21 16:42 | P.PN ---
Subjective Date of Service: 01/21/20 Chief Complaint: shortness of breath and lower extremity edema <Tre Luis Last Filed: 01/21/20 16:33> Date of Service: 01/21/20 Subjective: Other (Agree with plan of care. Patient seen and evaluated with nurse practitioner.) <Augustin Leyva Last Filed: 01/21/20 17:24> Review of Systems General: Unremarkable Eyes: Unremarkable ENT: Unremarkable Respiratory: Unremarkable Cardiovascular: Unremarkable Gastrointestinal: Unremarkable Genitourinary: Unremarkable Musculoskeletal: Unremarkable Integumentary: Unremarkable Neurological: Unremarkable Lymphatics: Unremarkable <Tre Luis Last Filed: 01/21/20 16:33> Physical Examination - Vital Signs Temperature: 98.2 F Blood Pressure: 148/52 Pulse: 54 Respirations: 18 Pulse Ox (%): 97 - Physical Exam General: Alert, In no apparent distress, Oriented x3 HEENT: Atraumatic, Normocephalic Neck: Supple Respiratory: Normal air movement Cardiovascular: Normal pulses, Normal S1 S2 Capillary refill: <2 Seconds Gastrointestinal: Normal bowel sounds Musculoskeletal: No clubbing, No swelling Integumentary: Other (Lower extremity lymphedema) Neurological: Normal speech Lymphatics: No axilla or inguinal lymphadenopathy <Tre Luis Last Filed: 01/21/20 16:33> - Physical Exam Integumentary: No tenderness/swelling, No erythema, No warmth, No cyanosis - Studies Medications List Reviewed: Yes <Augustin Leyva Last Filed: 01/21/20 17:24> Assessment & Plan Discharge Plan: Other (Inpatient rehab) Plan to discharge in: 24 Hours - Code Status/Comfort Care Code Status Assessed: Yes Physician Review Additional Text: Assessment Hypertensive emergency Decompensated CHF Atrial fibrillation SHANE Leg wounds/cellulitis Stage III pressure ulcer in the buttocks PLAN Hypertensive emergency-this has improved. continue with cardiology and nephrology recommendations. Continue telemetry. Working with social worker palliative care to determine if patient can be placed in inpatient rehab. If not patient may require placement in a [facility]p temporarily. Anticipate possible discharge tomorrow. Decompensated CHF-this has improved. continue with cardiology and nephrology recommendations. Continue with 1.5L fluid restriction and low sodium diet. Atrial fibrillation- continue Pradaxa for CVA prevention. Continue with telemetry SHANE- continue with nephrology recommendations, no acute changes. Leg wounds/cellulitis- continue with wound healing recommendations. Stage III pressure ulcer in the buttocks- continue with wound healing recommendations. Critical Care: No Time Spent Managing Pts Care (In Minutes): 55 <Tre Luis - Last Filed: 01/21/20 16:33> Discharge Plan: Other Physician Review Additional Text: Patient seen and examined with nurse practitioner. Agree with plan of care. Case to also discuss with nephrology. Continue to adjust medication. Nephrology plans to adjust blood pressure medication. Awaiting approval for patient to go to inpatient rehab. Anticipate acceptance within the next 24-48 hr. Deeper compensated CHF related to acute on chronic systolic CHF. Patient with underlying acute on chronic renal disease stage IV. <Augustin Leyva - Last Filed: 01/21/20 17:24>
[2020-01-21] MEDS: ACETAMINOPHEN 500 MG TAB PO PRN (21:24)
[2020-01-21] MEDS: GABAPENTIN 100 MG CAP PO SCH (21:26)
[2020-01-21] MEDS: DOCUSATE NA/SENNA CONC 1 TAB PO SCH (21:26)
[2020-01-21] MEDS: TAMSULOSIN 0.4 MG SR CAP PO SCH (21:27)
[2020-01-21 23:50] LABS: Urine Protein/Creatinine Ratio 1.28 ratio (<0.15)
--- NOTE | 2020-01-22 01:54 | PN ---
Date of Progress Note: 01/21/2020 Subjective: Patient seen at bedside. No events reported. The patient feels well. He denies any fe vers, chills, chest pain, shortness of breath, nausea, vomiting, or diarrhea. Objective: Vital Signs: Blood pressure is 148/52, pulse 54, afebrile. Input and output 1680 in, 15 75 out. Thus far today, 760 in, 875 out. General: Elderly, no acute distress. Heart: Regular rate and rhythm. No murmurs, rubs, or gallops. Lungs: Diminished breath sounds at bases. Abdomen: Soft, nontender, nondistended. Positive bowel sounds x4. Extremities: With 2 to 3+ edema. Laboratory Data: CBC, hemoglobin 8.5, hematocrit 26.7. Serum chemistry, BUN and creatinine 67/3.5, which has been rising from 2.39 on presentation. CRP is 6.73. BNP 10,262. Urinalysis, protein crea tinine ratio shows 1.2 g of proteinuria. Current Medications: Reviewed. Impression: 1.Acute systolic congestive heart failure. 2.Acute kidney injury secondary to cardiorenal syndrome. 3.Chronic lymphedema. 4.Atrial fibrillation. 5.Leg and decubitus wounds. Plan: 1.Patient's blood pressure has risen some. The patient will continue diuresis and I would like to s ee the blood pressure trend going tomorrow. Recommendation would be to increase hydralazine to 50 mg p.o. t.i.d. The creatinine is continuing to rise and is likely the patient is intravascular volume depleted and Lasix will need to be cut down to maintenance dose, which I believe 40 mg daily would be adequate. Losartan would also need to be held if creatinine is rising. 2.Unclear of patient's baseline creatinine. The patient was living in another part of [place] for man y years. However, he did state that he had blood work in June of last year, was not told of any r enal dysfunction. 3.Avoid NSAIDs. Avoid contrast. Continue monitoring strict ins and outs. Will continue to follow. SE/MODL Voice ID: [id number] Report ID: [id number]
--- NOTE | 2020-01-22 02:09 | WHHP ---
Date of Admission: 01/16/2020 Subjective: Patient is seen at the bedside. No overnight events reported. Urine output yesterday w as 1050 with 1575 out today. The patient did have some hypotension in the past 24-48 hours, however, that is rebounding. States his dyspnea has improved, but overall edema remains stable. Speaking to Mr. Garsia, he tells me that he has been practically better chair-bound for quite some time. He mantilla s not been able to move much. He has sores on his bottom. He states the edema has been there for so metime as well. He denied being ever told of any renal disease and stated that he had some lab work drawn in June and he was told that he had renal disease; however, he is unclear of the baseline cr eatinine. He continues on Lasix 40 mg IV b.i.d. Objective: Vital Signs: Blood pressure 148/52, pulse 54, afebrile. Input and output 1608 in, 1575 out. General: No acute distress. Heart: Distant heart sounds. Regular rate and rhythm. No murmurs, rubs, or gallops. Lungs: Diminished breath sounds at the bases. Abdomen: Soft, nontender, nondistended. Extremities: 2+ edema bilaterally. Laboratory Data: Sodium 137, potassium 4.1, chloride 101, CO2 28, BUN 67, creatinine 3.5, glucose 10 8, calcium 8.6, magnesium 2.3. BNP is 10,262, which improved from a peak of 15,000. CBC, hemoglobin 8.5, hematocrit 26.7. Current Medications: Reviewed. Continues on Lasix 40 mg IV b.i.d., also on losartan 25 mg p.o. sho kellogg Impression: 1.Acute kidney injury on possible underlying chronic kidney disease and cardiorenal syndrome. 2.Acute on chronic systolic congestive heart failure. 3.Hypoalbuminemia. 4.Lymphedema. 5.Hypertension. 6.Atrial fibrillation. Plan: The patient appears to improve from an acute CHF perspective. His lungs are clear. He is kun athing comfortably. He does have longstanding edema and much of this may not be amenable to aggressi ve diuresis. I would decrease his Lasix to 40 mg IV daily. I think his intravascular volume is depl eted. If the patient's creatinine continues to rise tomorrow, he will likely need to be discontinued off the ARB until his renal function is more stable. I have sent out urine assays to look at the le laya of proteinuria that he has to see if he has any nephrotic syndrome. Likely, this is all due to c ardiorenal syndrome. His level of creatinine precludes the use of spironolactone. I would defer to Cardiology and choice of beta-jacqueline for blood pressure control. However, would avoid increasing AC E or ARB at this time. Initially will lean toward discontinuation tomorrow if renal function worsens . The patient may benefit from a combination of beta jacqueline and possibly hydralazine. However, we will defer to Cardiology in that regard. JANICE Voice ID: [id number]
[2020-01-22 04:32] LABS: Magnesium 2.2 mg/dL (1.8-2.4); Phosphorus 3.7 mg/dL (2.5-4.9); Potassium 4.3 mmol/L (3.5-5.1)
[2020-01-22] MEDS: VITAMIN D 5,000 UNIT CAP PO SCH (09:07)
[2020-01-22] MEDS: ENSURE HIGH PROTEIN 237 ML CAN PO SCH ×2 (09:07→20:37)
[2020-01-22] MEDS: SUCRALFATE 1 GM TABLET PO SCH ×4 (09:07→20:37)
[2020-01-22] MEDS: ISOSORBIDE DINIT 20 MG TAB PO SCH ×3 (09:07→20:36)
[2020-01-22] MEDS: JUVEN PACKET PO SCH ×2 (09:07→20:37)
[2020-01-22] MEDS: LOSARTAN POTASSIUM 50 MG TABLET PO SCH (09:08)
[2020-01-22] MEDS: MAGNESIUM OXIDE 400 MG TAB PO SCH ×3 (09:08→20:36)
[2020-01-22] MEDS: HYDRALAZINE HCL 25 MG TABLET PO SCH ×3 (09:08→20:36)
[2020-01-22] MEDS: FUROSEMIDE 40 MG/4 ML VIAL IV SCH (09:08)
[2020-01-22] MEDS: PANTOPRAZOLE 40MG TABLET PO SCH (09:08)
[2020-01-22] MEDS: DABIGATRAN 75 MG CAP PO SCH ×2 (09:09→20:36)
--- NOTE | 2020-01-22 10:48 | EKG ---
Test Date: 2020-01-19 Test Time: 16:47:19 [place]le Sewer: ABDIRASHID MEASUREMENT RESULTS: Intervals: Rate: 44 NC: QRSD: 88 QT: 514 QTc: 439 Andes: P: NC: QRS: -45 T: 86 INTERPRETIVE STATEMENTS: Atrial fibrillation with slow ventricular response Left axis deviation Minimal voltage criteria for LVH, may be normal variant Inferior infarct, age undetermined Anteroseptal infarct, age undetermined Abnormal ECG Compared to ECG 01/16/2020 08:38:16 Ventricular premature complex(es) no longer present Myocardial infarct finding still present Electronically Signed On 01-22-20 10:47:24 CDT by Dmitry Recio
--- NOTE | 2020-01-22 13:40 | P.PN ---
Subjective Date of Service: 01/22/20 Chief Complaint: shortness of breath and lower extremity edema Subjective: Doing well Physical Examination - Vital Signs Temperature: 98.0 F Blood Pressure: 140/53 Pulse: 65 Respirations: 18 Pulse Ox (%): 99 - Physical Exam General: Alert, In no apparent distress, Oriented x3, Cooperative HEENT: Atraumatic Neck: Supple Respiratory: Clear to auscultation bilaterally, Normal air movement Cardiovascular: Normal pulses, Regular rate/rhythm Gastrointestinal: Normal bowel sounds, Soft and benign, Non-distended Neurological: Normal speech, Normal strength at 5/5 x4 extr, Normal tone, Normal affect - Studies Medications List Reviewed: Yes Assessment & Plan Discharge Plan: Other (Inpatient rehab) Plan to discharge in: 24 Hours Physician Review Additional Text: Assessment Hypertensive emergency Decompensated CHF Atrial fibrillation SHANE Leg wounds/cellulitis Stage III pressure ulcer in the buttocks PLAN Hypertensive emergency-patient has done well. Continue with medication. Case discussed with child protective services social worker. Currently looking to send patient to inpatient rehab. If this fells will pursue skilled placement. This was discussed in detail with patient who agrees with plan of care. Anticipate approval by inpatient rehab hopefully today. Decompensated CHF-this has improved. continue with cardiology and nephrology recommendations. Continue with 1.5L fluid restriction and low sodium diet. Atrial fibrillation- continue Pradaxa for CVA prevention. Continue with telemetry SHANE- continue with nephrology recommendations, no acute changes. Leg wounds/cellulitis- continue with wound healing recommendations. Stage III pressure ulcer in the buttocks- continue with wound healing recommendations. Time Spent Managing Pts Care (In Minutes): 55
[2020-01-22] MEDS: MEDIHONEY 44 ML TOPICAL TUBE TOP SCH (17:21)
--- NOTE | 2020-01-22 18:59 | RAD REPORT ---
EXAM DESCRIPTION: RAD - Chest Single View - 01/22/2020 6:54 pm CLINICAL HISTORY: chf Chest pain. COMPARISON: Chest Single View dated 01/16/2020 FINDINGS: Portable technique limits examination quality. Mild improvement is seen pulmonary edema and pleural effusion pattern since the comparative study. Th e heart is significantly enlarged in size. No displaced fractures. IMPRESSION: Mild improvement in CHF.
[2020-01-22] MEDS: ACETAMINOPHEN 500 MG TAB PO PRN (20:35)
[2020-01-22] MEDS: GABAPENTIN 100 MG CAP PO SCH (20:36)
--- NOTE | 2020-01-22 20:36 | PN ---
Date of Progress Note: 01/22/2020 Subjective: Patient is seen at the bedside. No overnight events reported. The patient feels well. He denies any fevers, chills, chest pain, shortness of breath, nausea, vomiting, or diarrhea. Objective: Vital Signs: Blood pressure is 140/53, pulse 65, afebrile. Input and output 1680 in and 1575 out. Today, it has been 1070 in and 2775 out, negative balance of 1.7 L. General: No acute distress. Heart: Regular rate and rhythm. No murmurs, rubs, gallops. Lungs: Diminished breath sounds at bases. Abdomen: Soft, nontender, nondistended. Extremities: 2+ edema. Laboratory Data: CBC, hemoglobin 8.5, hematocrit 26.7. Serum chemistry, BUN 82, creatinine 3.57. U A showed 1.28 g of proteinuria. The patient's serum electrophoresis is pending as well as urine elec trophoresis. Current Medications: Reviewed. Of note, on Lasix 40 mg IV daily as well as hydralazine 25 mg p.o. t .i.d. No other medications were noted. Impression: 1.Acute kidney injury on possible underlying chronic kidney disease, and cardiorenal syndrome. 2.Acute on chronic systolic congestive heart failure. 3.Hypoalbuminemia. 4.Lymphedema. 5.Hypertension. 6.Atrial fibrillation. Plan: The patient's volume status appears to be stable. He has had significant diuresis yesterday w ith Lasix administration. With his worsening azotemia and hypochloremia, I believe the patient is ac hieving intravascular euvolemia. Decrease Lasix to 40 mg IV daily. I have also discontinued his ARB . Hydralazine dose has been increased to modify for hypertension. The patient does not have signifi cant proteinuria and thus nephrotic syndrome is not likely. Avoid all NSAIDs. Avoid all contrast. We wi ll continue to follow. SE/MODL Voice ID: [id number] Report ID: [id number]
[2020-01-22] MEDS: TAMSULOSIN 0.4 MG SR CAP PO SCH (20:37)
[2020-01-22] MEDS: DOCUSATE NA/SENNA CONC 1 TAB PO SCH (20:38)
[2020-01-23 08:05] LABS: Potassium 3.8 mmol/L (3.5-5.1)
[2020-01-23] MEDS: ISOSORBIDE DINIT 20 MG TAB PO SCH ×3 (08:20→20:49)
[2020-01-23] MEDS: MAGNESIUM OXIDE 400 MG TAB PO SCH ×3 (08:20→20:50)
[2020-01-23] MEDS: SUCRALFATE 1 GM TABLET PO SCH ×4 (08:21→20:49)
[2020-01-23] MEDS: PANTOPRAZOLE 40MG TABLET PO SCH (08:21)
[2020-01-23] MEDS: HYDRALAZINE HCL 25 MG TABLET PO SCH ×3 (08:21→20:49)
[2020-01-23] MEDS: MEDIHONEY 44 ML TOPICAL TUBE TOP SCH (08:22)
[2020-01-23] MEDS: JUVEN PACKET PO SCH ×2 (08:22→20:50)
[2020-01-23] MEDS: ENSURE HIGH PROTEIN 237 ML CAN PO SCH ×2 (08:22→20:50)
[2020-01-23] MEDS: DABIGATRAN 75 MG CAP PO SCH ×2 (08:22→20:49)
[2020-01-23] MEDS: FUROSEMIDE 40 MG/4 ML VIAL IV SCH (08:22)
[2020-01-23] MEDS: VITAMIN D 5,000 UNIT CAP PO SCH (08:23)
--- NOTE | 2020-01-23 11:58 | RAD REPORT ---
EXAM DESCRIPTION: US - Urinary Bladder - 01/23/2020 11:02 am CLINICAL HISTORY: eval for retention Pelvic pain. COMPARISON: Urinary Bladder dated 01/17/2020 TECHNIQUE: Real-time sonographic evaluation of the urinary bladder with pre and postvoid volume jose armando urements was performed. FINDINGS: No evidence of urinary bladder mass or ureterocele. Prevoid bladder volume measured 230 mL . Postvoid bladder volume measured 19 mL. IMPRESSION: Minimal postvoid residual noted measuring 19 mL.
[2020-01-23 12:16] LABS: Urine Appearance CLEAR; Urine Bilirubin NEGATIVE (NEG); Urine Blood NEGATIVE (NEG); Urine Color YELLOW; Urine Glucose NEGATIVE (NEG); Urine Protein 2+ (NEG); Urine Urobilinogen 0.2 mg/dL (0.2-1.0)
[2020-01-23 13:57] LABS: Urine Bacteria <20 /HPF (NONE SEEN); Urine Culture Reflex Order NOT NEEDED; Urine RBC <5 /HPF (NONE SEEN)
--- NOTE | 2020-01-23 15:22 | P.PN ---
Subjective Date of Service: 01/23/20 Chief Complaint: shortness of breath and lower extremity edema Subjective: Doing well Physical Examination - Vital Signs Temperature: 98.8 F Blood Pressure: 114/70 Pulse: 60 Respirations: 20 Pulse Ox (%): 98 - Physical Exam General: Alert, In no apparent distress, Cooperative HEENT: Atraumatic Neck: Supple Respiratory: Clear to auscultation bilaterally, Normal air movement Cardiovascular: Irregular heart rate/rhythm (AFib rate controlled) Gastrointestinal: Normal bowel sounds, No tenderness, No masses, No rebound, No guarding Neurological: Normal speech, Normal strength at 5/5 x4 extr, Normal tone, Normal affect - Studies Medications List Reviewed: Yes Assessment & Plan Discharge Plan: Other (alf facility) Plan to discharge in: 24 Hours Physician Review Additional Text: Assessment Hypertensive emergency Acute on chronic systolic CHF Paroxysmal Atrial fibrillation on chronic anti coagulation therapy Acute on chronic renal disease stage IV Leg wounds/cellulitis Stage III pressure ulcer in the buttocks GERD PLAN Hypertensive emergency: This is much improved after adjustments made by Cardiology and Nephrology. Patient currently on hydralazine. Case discussed at length with patient and social work. Also got in contact with [facility], his insurance. Apparently they will deny him inpatient rehab. Therefore will pursue skilled placement. Physical therapy still recommends highly skilled placement. Patient agrees. Await approval to skilled facility. Acute on chronic systolic CHF: Continue with current medication. Continue with fluid restriction as well. X-ray showed improvement yesterday. Continue with physical therapy to built-up endurance. Paroxysmal atrial fibrillation on chronic anti coagulation therapy: Continue with current medication. Patient on Pradaxa. Overall stable. Rate controlled. Acute on chronic renal disease stage IV: Case discussed at length with nephrology. Nephrology continues to adjust medication. Leg wounds/cellulitis: Continue with wound healing recommendations. Stage III pressure ulcer in the buttocks: Continue wound healing recommendations. GERD: Continue with medication Time Spent Managing Pts Care (In Minutes): 55
--- NOTE | 2020-01-23 15:39 | PN ---
Date of Progress Note: 01/23/2020 Subjective: Patient is seen at the bedside. Patient feels well. He is getting ready for physical t herapy. He denies any fevers, chills, chest pain, shortness of breath, nausea, vomiting, or diarrhea . Objective: Vital Signs: Blood pressure 143/43, pulse 55, afebrile. General: No acute distress. HEART: Regular rate and rhythm. No murmurs, rubs, or gallops. Lungs: Diminished breath sounds at the bases. Abdomen: Soft, nontender. Extremities: With 2+ edema of the bilateral lower extremities. Laboratory Data: CBC: Hemoglobin 8.5, hematocrit 26.7. Serum chemistry: Potassium 3.8, BUN and cr eatinine are 84 and 3.61. Impression: 1.Acute kidney injury on possible underlying chronic kidney disease with cardiorenal syndrome. 2.[id number] systolic congestive heart failure. 3.Hypoalbuminemia. 4.Lymphedema. 5.Hypertension. 6.Atrial fibrillation. Plan: The patient continues to have edema and chest x-ray does show that he does have persistent alt jose mildly improved effusions. Lasix was decreased yesterday. However, it has not shown any signi ficant improvement in the patient's renal function. In terms of workup, a prior UA did show 1.28 g o f proteinuria. His immunofixation is pending at this time. I will repeat the UA as he did have scan t hematuria on the prior UA. If hematuria persists, further workup would be necessary that has yet t o be seen. However, he is on Pradaxa, which can lead inevitably to some mild hematuria of non-glomer ular origin. The patient may likely have an ATN, which was hemodynamically mediated. Looking at patient's blood p ressures on admission, he was in the 180s to 190s range with unclear control in the outpatient settin g. The blood pressure was brought down into the 130s range, and he also had some into the 1-teens. This may have been relative hypotension leading to an ATN. Currently, blood pressures are in 130s to 140s. I have decreased to modify the prior antihypertensive regimen to allow some recovery of blood pressure. The patient may have a prolonged process of recovery if this is ATN; however, the patient is having robust urine output which is encouraging. Continue to avoid NSAIDs, avoid contrast, renal dose all medications. We will continue to follow. SE/MODL Voice ID: [id number] Report ID: [id number]
[2020-01-23] MEDS: GABAPENTIN 100 MG CAP PO SCH (20:49)
[2020-01-23] MEDS: TAMSULOSIN 0.4 MG SR CAP PO SCH (20:49)
[2020-01-23] MEDS: DOCUSATE NA/SENNA CONC 1 TAB PO SCH (20:49)
[2020-01-24] MEDS: ACETAMINOPHEN 500 MG TAB PO PRN ×3 (03:16→21:13)
[2020-01-24 06:05] LABS: C-Reactive Protein 41.7 mg/L (<3.00); Phosphorus 3.5 mg/dL (2.5-4.9)
[2020-01-24] MEDS: SUCRALFATE 1 GM TABLET PO SCH ×4 (08:31→21:14)
[2020-01-24] MEDS: PANTOPRAZOLE 40MG TABLET PO SCH (08:31)
[2020-01-24] MEDS: VITAMIN D 5,000 UNIT CAP PO SCH (08:31)
[2020-01-24] MEDS: ISOSORBIDE DINIT 20 MG TAB PO SCH ×3 (08:32→21:14)
[2020-01-24] MEDS: FUROSEMIDE 40 MG/4 ML VIAL IV SCH ×2 (08:32→08:39)
[2020-01-24] MEDS: DABIGATRAN 75 MG CAP PO SCH ×2 (08:32→21:14)
[2020-01-24] MEDS: MAGNESIUM OXIDE 400 MG TAB PO SCH ×3 (08:32→21:00)
[2020-01-24] MEDS: HYDRALAZINE HCL 25 MG TABLET PO SCH ×3 (08:32→21:14)
[2020-01-24] MEDS: ENSURE HIGH PROTEIN 237 ML CAN PO SCH ×2 (08:32→21:15)
[2020-01-24] MEDS: JUVEN PACKET PO SCH ×2 (08:32→21:15)
[2020-01-24] MEDS: MEDIHONEY 44 ML TOPICAL TUBE TOP SCH (08:33)
--- NOTE | 2020-01-24 11:17 | P.PN ---
Subjective Date of Service: 01/24/20 Chief Complaint: shortness of breath and lower extremity edema Subjective: Improving, Doing well Physical Examination - Vital Signs Temperature: 97 F Blood Pressure: 140/68 Pulse: 65 Respirations: 20 Pulse Ox (%): 95 - Physical Exam General: Alert, In no apparent distress, Cooperative HEENT: Atraumatic Neck: Supple Respiratory: Clear to auscultation bilaterally, Normal air movement Cardiovascular: Irregular heart rate/rhythm (AFib rate controlled) Gastrointestinal: Normal bowel sounds, Soft and benign, Non-distended Musculoskeletal: No tenderness, No warmth Integumentary: Other (Swelling to the lower extremities stable.) Neurological: Normal speech, Normal strength at 5/5 x4 extr, Normal tone, Normal affect - Studies Medications List Reviewed: Yes Assessment & Plan Discharge Plan: Other (prison facility) Physician Review Additional Text: Assessment Hypertensive emergency Acute on chronic systolic CHF Paroxysmal Atrial fibrillation on chronic anti coagulation therapy 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 Case discussed with nephrology yesterday. Patient awaiting skilled placement facility approval. Anticipate this will occur today. If so patient will be discharged. Patient was tested for COVID in preparation for the patient to be sent to a skilled facility. Acute on chronic systolic CHF: Diuretics have been adjusted by Nephrology. Patient no longer on diuretic therapy at this time. Continue 1500 cc per day fluid restriction. Will need to monitor weight daily. Will also monitor urine output. Continue with physical therapy to built-up endurance. Paroxysmal atrial fibrillation on chronic anti coagulation therapy: Continue with current medication. Patient on Pradaxa. Overall stable. Rate controlled. 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 Continue with their recommendation. Overall stable. Leg wounds/cellulitis: Continue with wound healing recommendations. Stage III pressure ulcer in the buttocks: Continue wound healing recommendations. GERD: Continue with medication BPH: Continue with Flomax 0.4 mg daily. Chronic pain: Continue with Neurontin 100 mg at bedtime. Time Spent Managing Pts Care (In Minutes): 55
--- NOTE | 2020-01-24 13:23 | PN ---
Date of Progress Note: 01/23/2020 Subjective: Patient is seen and examined at bedside. He is doing very well at this time. He denies any shortness of breath. No overnight events were noted. Physical Examination: Vital Signs: Have been reviewed and are stable overnight. General: He appears in no acute distress. HEENT: Atraumatic head. Lungs: Auscultation of the lungs revealed bilateral equal air entry with diminished breath sounds at bases. Abdomen: Soft and nontender. Extremities: Showed bilateral lower extremity wounds. Laboratory Data: Showed a creatinine of 3.6, BUN of 84, and other electrolytes are stable. BMP resu lts have been reviewed in detail as well. CBC results have been reviewed in detail as well. Current Medications: Pradaxa 75 mg b.i.d., vitamin D, Ensure, Lasix 40 mg IV daily, gabapentin, hydr alazine, isosorbide, magnesium oxide, pantoprazole, sucralfate, tamsulosin, and Visine ophthalmalgic solution. Impression: 1.Acute on chronic renal failure worsening secondary to acute tubular necrosis from hemodynamic fluc tuations from hypertension and hypotension and relative hypotension. Patient is nonoliguric. At thi s time we will continue to monitor renal function. Maybe he might benefit from gentle IV hydration. 2.Acute on chronic systolic heart failure. Patient's volume status seems to be stable and improving . He is on once a day Lasix, which I will probably hold secondary to worsening renal function and ma y be give some gentle hydration to see how he does. 3.Severe malnutrition with multiple wounds. Patient is undergoing wound care. 4.Lymphedema, stable. 5.Atrial fibrillation, rate controlled at this time and is also on anticoagulation with Pradaxa. Plan: Overall the patient's renal function continues to worsen still from hemodynamic fluctuations. At this time his volume status seems stable. We will hold the Lasix and discussed with Dr. Leyva a bout may be giving him some gentle IV hydration to see how he does. Continue to monitor closely. He is unable to be discharged at this time secondary to worsening renal status. We will follow up clos alfred. VV/MODL Voice ID: [id number] Report ID: [id number]
[2020-01-24] MEDS: GABAPENTIN 100 MG CAP PO SCH (21:13)
[2020-01-24] MEDS: TAMSULOSIN 0.4 MG SR CAP PO SCH (21:14)
[2020-01-24] MEDS: DOCUSATE NA/SENNA CONC 1 TAB PO SCH (21:14)
[2020-01-24 22:16] VITALS: O2SAT 97
[2020-01-25] MEDS: ACETAMINOPHEN 500 MG TAB PO PRN ×2 (01:45→14:00)
[2020-01-25] MEDS: SUCRALFATE 1 GM TABLET PO SCH ×2 (08:46→13:00)
[2020-01-25] MEDS: HYDRALAZINE HCL 25 MG TABLET PO SCH ×2 (08:46→14:00)
[2020-01-25] MEDS: PANTOPRAZOLE 40MG TABLET PO SCH (08:46)
[2020-01-25] MEDS: VITAMIN D 5,000 UNIT CAP PO SCH (08:46)
[2020-01-25] MEDS: MAGNESIUM OXIDE 400 MG TAB PO SCH ×2 (08:46→14:00)
[2020-01-25] MEDS: DABIGATRAN 75 MG CAP PO SCH (08:46)
[2020-01-25] MEDS: JUVEN PACKET PO SCH (08:47)
[2020-01-25] MEDS: ENSURE HIGH PROTEIN 237 ML CAN PO SCH (08:47)
[2020-01-25] MEDS: MEDIHONEY 44 ML TOPICAL TUBE TOP SCH (08:47)
[2020-01-25] MEDS: ISOSORBIDE DINIT 20 MG TAB PO SCH ×2 (08:53→14:01)
--- NOTE | 2020-01-25 13:03 | P.DS ---
Admission Date: 01/16/20 Discharge Date: 01/25/20 Disposition: TRANSFER TO SNF - MEDICAL Discharge Condition: GOOD Reason for Admission: shortness of breath and lower extremity edema Consultations: Nephrology-Dr. Desir Cardiology-Dr. Recio Procedures: ECHO: EF 47% LEFT VENTRICULAR WALL MOTION: MILD GLOBAL HYPOKINESIS. DOPPLER/COLOR FLOW: MILD AORTIC STENOSIS 1.7 CENTIMETER SQUARED. MILD TRICUSPID REGURGITATION NORMAL RIGHT VENTRICULAR SYSTOLIC PRESSURE. COMMENTS: MILD AORTIC STENOSIS 1.7 CENTIMETERS SQUARED. MILD GLOBAL HYPOKINESIS EJECTION FRACTION 44%. MITRAL ANNULAR CALCIFICATION. MILD TRICUSPID REGURGITATION NORMAL RIGHT VENTRICULAR SYSTOLIC PRESSURE. 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 Patient was admitted for acute on chronic systolic CHF. Hospital Course: Patient presented with acute on chronic systolic CHF and mild aortic stenosis. Patient also with hypertensive emergency. The patient was evaluated by nephrology and cardiology. Ejection fraction around 46%. Medications have been adjusted during the course of his stay. His condition has improved. Currently the patient is on on a 1500 cc per day fluid restriction. Patient previously on Lasix 40 mg twice daily. This has been held at this time due to acute on chronic renal disease stage IV with cardiorenal syndrome. Patient has been evaluated for inpatient rehab. This was denied by insurance. Patient was evaluated for skilled placement and he has been approved. Patient will go to skilled facility to continue rehabilitation. At discharge patient will continue with a 1500 cc per day fluid restriction and low-salt diet. Recommend to monitor his weight closely. If his weight increases by more than 5 lb will need to consider restarting Lasix likely at 40 mg daily with potassium supplementation if okay with nephrology. Recommend to recheck lab-BMP in 1-2 weeks to monitor his progress. Recommend to monitor renal function closely. Recommend no further use of nonsteroidal anti-inflammatories. Recommend to renally those medication if new medication is required. As mentioned above patient presented with hypertensive emergency. Medications have been adjusted by Nephrology and Cardiology. Blood pressure now stable on hydralazine. Patient previously on losartan. At discharge for his hypertension, patient will continue with hydralazine 50 mg 1 pill 3 times a day. Recommend to maintain blood pressure less 150/80. Further adjustment can be done by his PCP. Patient with paroxysmally atrial fibrillation on chronic anti coalition therapy. This has remained stable. At discharge patient will continue with Pradaxa 75 mg 1 pill twice daily. Recommend to follow up with cardiology to further monitor and address. Patient also with underlying CAD. At discharge he will continue with Isordil 20 mg 1 pill 3 times a day. If patient with GERD. Medications have been adjusted. Patient will no longer take Prilosec. At discharge he will continue with Protonix 40 mg daily and sucralfate 1 g 4 times a day. Patient with stage III pressure ulcers to the buttocks and lower extremity chronic cellulitis. At discharge he will continue with current wound care instructions including Medihoney and wrappings. Patient with BPH. At discharge he will continue with Flomax 0.8 mg daily. Patient with chronic pain. At discharge he will continue with Neurontin 100 mg 3 times a day. Vital Signs/Physical Exam: Temp Pulse Resp BP Pulse Ox 97.7 F 66 18 100/60 97 01/25/20 08:00 01/25/20 08:00 01/25/20 08:00 01/25/20 08:00 01/25/20 08:00 General: Alert, In no apparent distress, Oriented x3, Cooperative HEENT: Atraumatic Neck: Supple Respiratory: Clear to auscultation bilaterally, Normal air movement Cardiovascular: Irregular heart rate/rhythm (AFib rate controlled) Gastrointestinal: Normal bowel sounds, No tenderness, No masses, No rebound, No guarding Integumentary: No warmth, No cyanosis Neurological: Normal speech, Normal strength at 5/5 x4 extr, Normal tone, Normal affect Laboratory Data at Discharge: WBC 7.5 K/uL (4.3-10.9) D 01/21/20 04:11 Hgb 8.5 g/dL (13.6-17.9) L 01/21/20 04:11 Hct 26.7 % (39.6-49.0) L 01/21/20 04:11 Plt Count 255 K/uL (152-406) 01/21/20 04:11 PT 13.0 SECONDS (9.5-12.5) H 01/16/20 09:10 INR 1.10 01/16/20 09:10 Sodium 137 mmol/L (136-145) 01/23/20 05:14 Potassium 3.8 mmol/L (3.5-5.1) 01/23/20 05:14 BUN 84 mg/dL (7-18) H 01/23/20 05:14 Creatinine 3.61 mg/dL (0.55-1.3) H 01/23/20 05:14 Glucose 97 mg/dL (74-106) 01/23/20 05:14 Phosphorus 3.5 mg/dL (2.5-4.9) 01/24/20 05:24 Magnesium 2.3 mg/dL (1.8-2.4) 01/25/20 05:04 Total Bilirubin 0.5 mg/dL (0.2-1.0) 01/17/20 04:41 AST 10 U/L (15-37) L 01/17/20 04:41 ALT 12 U/L (12-78) 01/17/20 04:41 Alkaline Phosphatase 78 U/L (45-117) 01/17/20 04:41 Troponin I < 0.02 ng/mL (0.0-0.045) 01/19/20 17:52 Home Medications: Gabapentin [Neurontin*] 100 mg PO TID 01/16/20 Magnesium Oxide [Mag 0X*] 400 mg PO TID 01/16/20 Sennosides/Docusate Sodium [Senexon-S 50-8.6 mg Tablet] 1 each PO BEDTIME 01/16/20 Sucralfate [Carafate*] 1 gm PO QID 01/16/20 Tamsulosin [Flomax*] 2 tab PO BEDTIME 01/16/20 Cholecalciferol (Vitamin D3) [Vitamin D 5,000 IU Cap*] 5,000 unit PO DAILY #30 cap 01/25/20 Dabigatran Etexilate Mesylate [Pradaxa*] 75 mg PO BID #60 cap 01/25/20 Hydralazine HCl 50 mg PO TID #90 tablet 01/25/20 Isosorbide Dinit [Isordil*] 20 mg PO TID #90 tab 01/25/20 Edilson [Edilson*] 1 pkt PO BID #60 powd.pack 01/25/20 Medihoney [Medihoney Woundcare Gel*] 1 appl TOP DAILY #1 tube 01/25/20 Pantoprazole [Protonix Tab*] 40 mg PO DAILY #30 tab 01/25/20 New Medications: Hydralazine HCl 50 mg PO TID #90 tablet Isosorbide Dinit [Isordil*] 20 mg PO TID #90 tab Edilson [Edilson*] 1 pkt PO BID #60 powd.pack Medihoney [Medihoney Woundcare Gel*] 1 appl TOP DAILY #1 tube Dabigatran Etexilate Mesylate [Pradaxa*] 75 mg PO BID #60 cap Pantoprazole [Protonix Tab*] 40 mg PO DAILY #30 tab Cholecalciferol (Vitamin D3) [Vitamin D 5,000 IU Cap*] 5,000 unit PO DAILY #30 cap Patient Discharge Instructions: Okay to discharge to skilled facility. Patient presented with acute on chronic systolic CHF and mild aortic stenosis. Patient also with hypertensive emergency. The patient was evaluated by nephrology and cardiology. Ejection fraction around 46%. Medications have been adjusted during the course of his stay. His condition has improved. Currently the patient is on on a 1500 cc per day fluid restriction. Patient previously on Lasix 40 mg twice daily. This has been held at this time due to acute on chronic renal disease stage IV with cardiorenal syndrome. Patient has been evaluated for inpatient rehab. This was denied by insurance. Patient was evaluated for skilled placement and he has been approved. Patient will go to skilled facility to continue rehabilitation. At discharge patient will continue with a 1500 cc per day fluid restriction and low-salt diet. Recommend to monitor his weight closely. If his weight increases by more than 5 lb will need to consider restarting Lasix likely at 40 mg daily with potassium supplementation if okay with nephrology. Recommend to recheck lab-BMP in 1-2 weeks to monitor his progress. Recommend to monitor renal function closely. Recommend no further use of nonsteroidal anti-inflammatories. Recommend to renally those medication if new medication is required. As mentioned above patient presented with hypertensive emergency. Medications have been adjusted by Nephrology and Cardiology. Blood pressure now stable on hydralazine. Patient previously on losartan. At discharge for his hypertension, patient will continue with hydralazine 50 mg 1 pill 3 times a day. Recommend to maintain blood pressure less 150/80. Further adjustment can be done by his PCP. Patient with paroxysmally atrial fibrillation on chronic anti coalition therapy. This has remained stable. At discharge patient will continue with Pradaxa 75 mg 1 pill twice daily. Recommend to follow up with cardiology to further monitor and address. Patient also with underlying CAD. At discharge he will continue with Isordil 20 mg 1 pill 3 times a day. If patient with GERD. Medications have been adjusted. Patient will no longer take Prilosec. At discharge he will continue with Protonix 40 mg daily and sucralfate 1 g 4 times a day. Patient with stage III pressure ulcers to the buttocks and lower extremity chronic cellulitis. At discharge he will continue with current wound care instructions including Medihoney and wrappings. Patient with BPH. At discharge he will continue with Flomax 0.8 mg daily. Patient with chronic pain. At discharge he will continue with Neurontin 100 mg 3 times a day. Diet: AHA Activity: Ad jeffrey Time spent managing pt's care (in minutes): 55
[2020-01-25 14:50] VITALS: BP 126/58; TEMP 97.6
--- NOTE | 2020-01-25 20:14 | PN ---
Date of Progress Note: 01/25/2020 Subjective: Patient is seen and examined. He is ready to be discharged. Objective: Vital Signs: Have been reviewed and are stable. General Examination: He appears in no acute distress. Lungs: Clear to auscultation. Abdomen: Soft. Extremities: With some anasarca was noted. Current Medications: Have been reviewed. Laboratory Data: No new laboratory datahas been obtained. Impression: 1.Acute on chronic renal insufficiency secondary to acute tubular necrosis, currently with improving renal function. 2.Chronic congestive heart failure, currently with stable overall volume status. 3.Severe debility and weakness. 4.Hypertensive emergency. Currently with improving blood pressure, more on the hypotensive side. Plan: Overall, patient is doing much better. Will need to follow up on renal function as outpatient . He is okay to be discharged from Nephrology standpoint and his medications have been adjusted. VV/MODL Voice ID: [id number] Report ID: [id number]
== END 2020-01-25 16:20 | DRG 291 ==
LOC: ER 08:16 → ERHOLD 11:37 → 3RD-ICU 16:58 → 2ND 01-17 14:45
PROVIDERS: ADMIT Internal Medicine; ATTEND Family Medicine
DX: I13.0 Hypertensive heart and chronic kidney disease with heart failure and stage 1 through stage 4 chronic kidney disease, or unspecified chronic kidney disease (principal); I50.23 Acute on chronic systolic (congestive) heart failure; N17.0 Acute kidney failure with tubular necrosis; E43 Unspecified severe protein-calorie malnutrition; I16.1 Hypertensive emergency; L03.116 Cellulitis of left lower limb; N18.4 Chronic kidney disease, stage 4 (severe); L89.303 Pressure ulcer of unspecified buttock, stage 3; R06.02 Shortness of breath; I25.10 Atherosclerotic heart disease of native coronary artery without angina pectoris; Z20.828 Contact with and (suspected) exposure to other viral communicable diseases; Z86.73 Personal history of transient ischemic attack (TIA), and cerebral infarction without residual deficits; L89.302 Pressure ulcer of unspecified buttock, stage 2; I49.3 Ventricular premature depolarization; Z88.5 Allergy status to narcotic agent; F17.210 Nicotine dependence, cigarettes, uncomplicated; Z79.82 Long term (current) use of aspirin; Z79.899 Other long term (current) drug therapy; Z90.49 Acquired absence of other specified parts of digestive tract; E83.51 Hypocalcemia; E11.22 Type 2 diabetes mellitus with diabetic chronic kidney disease; D63.8 Anemia in other chronic diseases classified elsewhere; E66.01 Morbid (severe) obesity due to excess calories; Z68.34 Body mass index [BMI] 34.0-34.9, adult; E11.40 Type 2 diabetes mellitus with diabetic neuropathy, unspecified; K21.9 Gastro-esophageal reflux disease without esophagitis; I48.0 Paroxysmal atrial fibrillation; N28.9 Disorder of kidney and ureter, unspecified; E88.09 Other disorders of plasma-protein metabolism, not elsewhere classified; I89.0 Lymphedema, not elsewhere classified; I35.0 Nonrheumatic aortic (valve) stenosis
CPT/HCPCS: 36415; 71045; 76770; 76857; 80048; 80053; 80076; 81001; 81003; 82570; 83036; 83735; 83880; 84100; 84145; 84156; 84484; 85025; 85610; 85652; 86021; 86038; 86140; 86225; 86334; 93005; 93306; 93970; 96374; 97112; 97116; 97161; 97530; 99251; 99285; J1940; Q5106; U0002